=== PATIENT | female | born 1975 | race Two or more races ===

== ENCOUNTER → 2017-06-05 | Emergency (ER) | payer OTHER ==
[~2017-06-05] VITALS: Ht 162.6 cm; Wt 81.2 kg
[~2017-06-05] MED LIST: DESPEC-DM TABL1 EACH PO; IBUPROFEN800 MG PO; IMODIUM A-D2 MG PO; INTESTINEX1 CAP PO; IPRAT-ALBUT 0.5-3 ML IH; PROTONIX40 MG PO; VISTARIL25 MG PO; ZYRTEC10 MG PO
== END | disposition home or self-care (01) ==
LOC: ER 23:51
DX: J06.9 Acute upper respiratory infection, unspecified (principal)

== ENCOUNTER 2017-10-02 06:52 | Emergency (ER) | payer OTHER ==
[~2017-10-02] VITALS: Ht 160 cm; Wt 77.1 kg
== END 2017-10-02 09:51 | disposition home or self-care (01) ==
LOC: ER 06:52
DX: J02.9 Acute pharyngitis, unspecified (principal)

== ENCOUNTER 2017-10-30 08:05 | Emergency (ER) | payer OTHER ==
[~2017-10-30] VITALS: Ht 160 cm; Wt 77.1 kg
== END 2017-10-30 14:08 | disposition home or self-care (01) ==
LOC: ER 08:05
DX: L72.3 Sebaceous cyst (principal); L02.416 Cutaneous abscess of left lower limb

== ENCOUNTER 2017-11-13 10:56 | Emergency (ER) | payer OTHER ==
[~2017-11-13] VITALS: Ht 160 cm; Wt 77.1 kg
== END 2017-11-13 13:07 | disposition home or self-care (01) ==
LOC: ER 10:56
DX: M62.830 Muscle spasm of back (principal); M54.5 Low back pain

== ENCOUNTER 2018-10-30 09:28 | Emergency (ER) | payer OTHER ==
[~2018-10-30] VITALS: Ht 160 cm; Wt 76.2 kg
[2018-10-30] MEDS ORDERED: COZAAR25 MG PO (09:34)
[2018-10-30] MEDS ORDERED: MICROZIDE12.5 MG PO (09:35)
== END 2018-10-30 10:27 | disposition home or self-care (01) ==
LOC: ER 09:28
DX: R42 Dizziness and giddiness (principal)

== ENCOUNTER 2019-05-14 22:51 | Emergency (ER) | payer OTHER ==
[~2019-05-14] VITALS: Ht 160 cm; Wt 77.1 kg
[~2019-05-14 22:51] MED LIST changes: +COZAAR25 MG PO; +MICROZIDE12.5 MG PO
[2019-05-14] MEDS ORDERED: BENADRYL (23:03)
[2019-05-14] MEDS ORDERED: PANADOL (23:03)
[2019-05-15] MEDS ORDERED: DOLOGESIC-DF 51 EACH PO (04:43)
[2019-05-15] MEDS ORDERED: ZYNCOF 20-400120 ML PO (04:43)
[2019-05-15] MEDS ORDERED: NASAL MIST126 ML NASAL (04:43)
== END 2019-05-15 04:57 | disposition home or self-care (01) ==
LOC: ER 22:51
DX: J06.9 Acute upper respiratory infection, unspecified (principal)

== ENCOUNTER 2019-07-31 07:18 | Emergency (ER) | payer OTHER ==
[~2019-07-31] VITALS: Ht 160 cm; Wt 77.1 kg
[~2019-07-31 07:18] MED LIST changes: +BENADRYL; +DOLOGESIC-DF 51 EACH PO; +NASAL MIST126 ML NASAL; +PANADOL; +ZYNCOF 20-400120 ML PO
[2019-07-31] MEDS ORDERED: PEPCID AC20 MG PO (09:13)
== END 2019-07-31 09:18 | disposition home or self-care (01) ==
LOC: ER 07:18
DX: K21.9 Gastro-esophageal reflux disease without esophagitis (principal)

== ENCOUNTER 2019-11-29 14:51 | Emergency (ER) | payer OTHER ==
[~2019-11-29] VITALS: Ht 160 cm; Wt 81.2 kg
[~2019-11-29 14:51] MED LIST changes: +PEPCID AC20 MG PO
[2019-11-30] MEDS ORDERED: KETO10TA2 PO (01:06)
== END 2019-11-30 01:19 | disposition home or self-care (01) ==
LOC: ER 14:51
DX: N83.291 Other ovarian cyst, right side (principal); R10.2 Pelvic and perineal pain

== ENCOUNTER → 2022-03-05 | Emergency (ER) | payer OTHER ==
[~2022-03-05] VITALS: Ht 160 cm; Wt 81.6 kg
[~2022-03-05] MED LIST changes: +KETO10TA2 PO; +ONDANSETRON ODT4 MG PO; +PEPCID40 MG PO
== END | disposition home or self-care (01) ==
LOC: ER 02:33
DX: R42 Dizziness and giddiness (principal); R11.0 Nausea

== ENCOUNTER 2022-03-08 08:37 | Emergency (ER) | payer OTHER ==
[~2022-03-08] VITALS: Ht 160 cm; Wt 81.6 kg
== END 2022-03-08 11:36 | disposition home or self-care (01) ==
LOC: ER 08:37
DX: K52.9 Noninfective gastroenteritis and colitis, unspecified (principal)

== ENCOUNTER 2022-08-05 14:41 | Emergency (ER) | payer OTHER ==
[~2022-08-05] VITALS: Ht 165.1 cm; Wt 79.4 kg
== END 2022-08-05 17:37 | disposition home or self-care (01) ==
LOC: ER 14:41
DX: J03.90 Acute tonsillitis, unspecified (principal)

== ENCOUNTER 2022-11-16 12:19 | Emergency (ER) | payer OTHER ==
[~2022-11-16] VITALS: Ht 160 cm; Wt 81.6 kg
== END 2022-11-16 20:11 | disposition home or self-care (01) ==
LOC: ER 12:19
DX: E87.6 Hypokalemia (principal); J06.9 Acute upper respiratory infection, unspecified; R53.81 Other malaise; B34.9 Viral infection, unspecified; Z20.822 Contact with and (suspected) exposure to COVID-19; I10 Essential (primary) hypertension

== ENCOUNTER 2022-11-20 05:56 | Emergency (ER) | payer OTHER ==
[~2022-11-20] VITALS: Ht 160 cm; Wt 85.3 kg
== END 2022-11-20 08:09 | disposition home or self-care (01) ==
LOC: ER 05:56
DX: U07.1 COVID-19 (principal); I10 Essential (primary) hypertension

== ENCOUNTER 2022-12-06 13:06 | Emergency (ER) | payer OTHER ==
[~2022-12-06] VITALS: Ht 160 cm; Wt 77.1 kg
[2022-12-06] MEDS ORDERED: TRAM1TAB98 PO (14:20)
== END 2022-12-06 14:47 | disposition home or self-care (01) ==
LOC: ER 13:06
DX: M26.629 Arthralgia of temporomandibular joint, unspecified side (principal)

== ENCOUNTER 2023-04-05 19:53 | Emergency (ER) | payer OTHER ==
[~2023-04-05] VITALS: Ht 160 cm; Wt 81.6 kg
[~2023-04-05 19:53] MED LIST changes: +TRAM1TAB98 PO
== END 2023-04-05 23:35 | disposition home or self-care (01) ==
LOC: ER 19:54
DX: M54.30 Sciatica, unspecified side (principal); Z88.6 Allergy status to analgesic agent

== ENCOUNTER 2024-01-11 02:23 | Emergency (ER) | payer OTHER ==
[~2024-01-11] VITALS: Ht 160 cm; Wt 81.2 kg
[2024-01-11] MEDS ORDERED: METOCLOPRAMIDE HCL 5 MG/ML VIAL IM STA (02:55)
[2024-01-11] MEDS ORDERED: FAMOtidine 10 MG/ML (4ML VIAL) IV PUSH STA (02:56)
[2024-01-11] MEDS ORDERED: HYOSCYAMINE SULFATE 0.125 MG TAB.SUBL ONE (02:59)
[2024-01-11] MEDS ORDERED: METOCLOPRAMIDE HCL 5 MG/ML VIAL ONE (03:00)
[2024-01-11] MEDS ORDERED: FAMOTIDINE/PF 20 MG/2 ML VIAL ONE (03:00)
[2024-01-11] MEDS ORDERED: HYOSCYAMINE SULFATE 0.125 MG TAB.SUBL SL ONE (03:00)
[2024-01-11] MEDS ORDERED: 0.9 % SODIUM CHLORIDE 500 ML IV STA (03:02)
== END 2024-01-11 04:10 | disposition home or self-care (01) ==
LOC: ER 02:25
DX: K52.89 Other specified noninfective gastroenteritis and colitis (principal); Z88.6 Allergy status to analgesic agent; I10 Essential (primary) hypertension

== ENCOUNTER 2024-04-25 05:06 | Emergency (ER) | payer OTHER ==
[~2024-04-25] VITALS: Ht 160 cm; Wt 77.6 kg
[2024-04-25 05:24] VITALS: BP 128/82; O2SAT 96
[2024-04-25] MEDS ORDERED: METOCLOPRAMIDE HCL 5 MG/ML VIAL IM STA (05:52)
[2024-04-25] MEDS ORDERED: DIPHENOXYLATE HCL/ATROPINE 1 UDTAB TABLET PO STA (05:52)
[2024-04-25] MEDS ORDERED: HYOSCYAMINE SULFATE 0.125 MG TAB.SUBL SL ONE (06:00)
== END 2024-04-25 06:06 | disposition home or self-care (01) ==
LOC: ER 05:07
DX: K52.89 Other specified noninfective gastroenteritis and colitis (principal); R10.9 Unspecified abdominal pain; Z88.6 Allergy status to analgesic agent

== ENCOUNTER 2024-05-06 17:16 | Emergency (ER) | payer OTHER ==
[~2024-05-06] VITALS: Ht 160 cm; Wt 82.1 kg
[2024-05-06 17:26] VITALS: BP 135/85; O2SAT 100
[2024-05-06] MEDS ORDERED: GUAIFENESIN 200 MG/10 ML BLIST.PACK PO ONE (19:00)
[2024-05-06] MEDS ORDERED: BENZONATATE 100 MG CAPSULE PO ONE (19:00)
== END 2024-05-06 20:48 | disposition home or self-care (01) ==
LOC: ER 17:18
DX: J10.1 Influenza due to other identified influenza virus with other respiratory manifestations (principal); Z88.6 Allergy status to analgesic agent; I10 Essential (primary) hypertension; Z20.822 Contact with and (suspected) exposure to COVID-19